=== PATIENT | female | born 1955 | race African-American/Black ===

== ENCOUNTER 2020-11-12 11:52 | Inpatient (IN) | payer BC, SELFPAY ==
[2020-11-12] VITALS (15 sets, daily range): BP systolic 120–140; BP diastolic 44–78; PULSE 49–55; RESP 10–20; TEMP 36.3–36.7; O2SAT 94–100; BMI 37.1
--- NOTE | ~2020-11-12 | CT_ITS ---
EXAMINATION: CT abdomen pelvis wo con DATE: 11/12/2020 14:07 INDICATION: Elevated lipase TECHNIQUE: Computed tomography (CT) of the abdomen and pelvis was performed without intravenous contr ast. The dose-length product (DLP) was 1062.25 mGy-cm. Automated exposure control and iterative recon struction technique were employed. COMPARISON: None FINDINGS: There is an 8 mm nodule in the right middle lobe. An 8 mm nodule is also noted in the lingu la. There are nodules measuring up to 6 mm in the left lower lobe. There is mild atelectasis of the v isualized lung bases. Cardiomegaly is noted. The examination is limited by the absence of intravenous contrast. Hepatomegaly is noted. There is nodularity of the liver surface. There is a 2.1 cm fluid a ttenuation lesion of the spleen. There is mild distention of the gallbladder. Inflammatory change is seen near the tail of the pancreas which is otherwise difficult to evaluate. The adrenal glands are u nremarkable. There is a 3 mm nonobstructing stone of the right kidney upper pole. The left kidney is unremarkable. Perisplenic varices are noted. There is calcified atherosclerosis of the aorta and many of the other arteries. No pathologically enlarged abdominal or pelvic lymph nodes are identified. Th ere is no free intraperitoneal gas or evidence of bowel obstruction. The appendix is normal. Colonic diverticulosis is present without evidence of diverticulitis. There is moderate spondylosis at L5-S1. Calcified uterine fibroids are noted. IMPRESSION: 1. Inflammatory change near the tail of the pancreas, likely reflecting acute pancreatitis given rusty ent's elevated lipase. 2. Hepatomegaly and cirrhosis. 3. Indeterminate nodules of the visualized lung bases measuring up to 8 mm. Follow-up CT of the chest in 3-6 months is recommended. Reviewed, dictated and finalized at location A. IMPRESSION: 1. Inflammatory change near the tail of the pancreas, likely reflecting acute p ancreatitis given patient's elevated lipase. 2. Hepatomegaly and cirrhosis. 3. Indeterminate nodules of the visualized lung bases measuring up to 8 mm. Fol low-up CT of the chest in 3-6 months is recommended.
--- NOTE | ~2020-11-12 | CT_ITS ---
EXAMINATION: CT brain wo con EXAM DATE: 11/13/2020 02:02 INDICATION: Confusion. TECHNIQUE: Spiral CT of the head was performed without contrast. Axial, coronal and sagittal images were reviewed. The dose-length product (DLP) for this examination was 605.33 mGy-cm. The exposure w as tailored according to patient size, and iterative reconstruction (ASIR) was used as additional dos e reduction technique. There is no prior study for comparison. FINDINGS: There is no acute intraparenchymal hemorrhage. No evidence of intraparenchymal brain mass lesion. No evidence of acute infarction. Please note that initial head CT has limited sensitivity f or small or acute infarctions. There is mild periventricular and subcortical hypodensity, nonspecific but probably related to small vessel ischemic disease. There is mild prominence of the sulci and v entricles related to cerebral atrophy. There is intracranial carotid arteriosclerosis. There are n o extra-axial collections. There is no mass effect or midline shift. The orbits are unremarkable. Soft tissue is unremarkable. The visualized sinuses and mastoid air cells are well aerated. IMPRESSION: 1. No acute intracranial findings. 2. Chronic age related findings. Reviewed, dictated and finalized at location B.
--- NOTE | ~2020-11-12 | US_ITS ---
EXAMINATION: US venous doppler [facility] DATE: 11/13/2020 09:57 INDICATION: Lower limb swelling TECHNIQUE: Grayscale ultrasound images without and with compression and Doppler ultrasound images of the bilateral lower extremity veins were obtained. COMPARISON: None. FINDINGS: The visualized portions of right common femoral vein, profunda (deep) femoral vein, femoral vein, pop liteal vein, posterior tibial veins, peroneal veins, gastrocnemius vein and greater saphenous vein ou tflow are patent. The visualized portions of left common femoral vein, profunda femoral vein, femoral vein, popliteal v ein, posterior tibial veins, peroneal veins, gastrocnemius vein and greater saphenous vein outflow ar e patent. IMPRESSION: 1. No deep venous thrombosis in either lower limb. Reviewed, dictated and finalized at location A.
--- NOTE | 2020-11-12 11:59 | ED.RECABL ---
HPI - Recheck/Abnormal Lab/Rx General Chief Complaint: Recheck/Abnormal Lab/Rx Stated Complaint: abnormal labs- cancer patient Time Seen by Provider: 11/12/20 11:59 History of Present Illness HPI narrative: 64 yo female w/ h/o metastatic liver cancer, cirrhosis, DM, HTN presents to the ED for abnormal labs. She reportedly had routine labs done by home health yesterday. Today Her sister received a call saying that her potassium and creatinine were high and she needs to come to the ED. He sister reports that she has not been eating or drinking anything at home. The patient is reportedly on palliative care, but her sister would like her admitted to the hospital if her condition can be improved. Related Data Home Medications Medication Instructions Recorded Confirmed amlodipine [Norvasc] 10 mg PO DAILY 11/12/20 citalopram [Celexa] 20 mg PO DAILY 11/12/20 famotidine [Pepcid] 40 mg PO DAILY 11/12/20 hydrochlorothiazide 25 mg PO DAILY 11/12/20 lactulose 30 ml PO BID 11/12/20 metformin 500 mg PO DAILY 11/12/20 metoprolol succinate 25 mg PO DAILY 11/12/20 tramadol 50 mg PO Q6-8H PRN 11/12/20 Allergies Allergy/AdvReac Type Severity Reaction Status Date / Time No Known Allergies Allergy Verified 11/12/20 12:06 Review of Systems Review of Systems: All systems reviewed & are unremarkable except as noted in HPI and below Constitutional: Constitutional: Denies fever(s) Cardiovascular: Cardiovascular: Denies chest pain Respiratory: Respiratory: Denies dyspnea Gastrointestinal: Gastrointestinal: Denies abdominal pain and Denies nausea Genitourinary: Genitourinary: Reports no additional female genitourinary complaints Musculoskeletal: Musculoskeletal: Reports back pain Neurologic: Denies dizziness COUNTS INCLUDE 234 BEDS AT THE [facility] Past Medical History Medical History Cirrhosis Diabetes mellitus HTN (hypertension) Liver cancer Social History Social History Living arrangements: with family Exam Const: General: no acute distress, alert, ill appearing and lethargic Orientation/consciousness: patient oriented x3 HENMT: Head: normal to inspection Neck: Neck: normal visual inspection Resp: Effort & Inspection: normal respiratory effort Auscultation: clear to auscultation bilaterally Cardio: Rate: bradycardic Rhythm: regular rhythm GI: Inspection: distended GI Palp: No Tenderness to palpation present (GI) and Yes Palpable mass present (RUQ) Skin: General skin exam: jaundice Neuro: General: patient oriented x3, moves all extremities, no focal motor deficits and CN's II-XI intact bilaterally Course Vital Signs Vital signs: Vital Signs Temperature 36.7 C 11/12/20 11:58 Pulse Rate 53 L 11/12/20 11:58 Respiratory Rate 16 11/12/20 11:58 Blood Pressure 140/60 11/12/20 11:58 Pulse Oximetry 100 11/12/20 11:58 Temperature 36.7 C 11/12/20 11:58 Pulse Rate 55 L 11/12/20 15:14 Respiratory Rate 18 11/12/20 15:14 Blood Pressure 132/78 11/12/20 15:14 Pulse Oximetry 99 11/12/20 15:14 MDM - Recheck/Abnormal Lab/Rx MDM Narrative Medical decision making narrative: Labs show elevated creatinine, elevated lipase, and moderate hypokalemia. CT shows findings concerning for acute pancreatitis. Per the MICA SIZER for her oncologist she has significant change from previous labs. They are agreeable to her being admitted here. Medical Records Attestation: I reviewed the patient's medical records. Lab Data Attestation: I reviewed the patient's lab results. Result diagrams: 11/12/20 12:13 11/12/20 12:50 Labs: Lab Results 11/12/20 11/12/20 11/12/20 Range/Units 12:13 12:50 13:12 WBC 11.7 H (4.5-10.0) K/mm3 RBC 4.69 (4.2-5.4) M/mm3 Hgb 10.6 L (12.0-15.0) g/dL Hct 34.0 L (37.0-47.0) % MCV 72.5 L (80-100) fl MCH 22.6 L (26-34) pg MCHC 31.2 L
[2020-11-12] MEDS: SODIUM CHLORIDE 0.9% IV 1,000 ML 999 ML IV CONT (12:23)
[2020-11-12 12:26] LABS: Basophils Absolute Auto 0.1 K/mm3 (0.0-0.1); Basophils Percent Auto 0.9 % (0.2-1.2); Eosinophils Absolute Auto 0.2 K/mm3 (0-0.3); Eosinophils Percent Auto 1.5 % (0-4.4); Hemoglobin 10.6 g/dL (12.0-15.0); Immature Granulocyte Absolute 0.11 K/mm3 (0.00-0.031); Immature Granulocyte Percent A 0.9 % (0-0.5); Immature Platelet Fraction Pct 10.4 % (0.9-11.2); Lymphocytes Absolute Auto 3.09 K/mm3 (0.9-3.2); Lymphocytes Percent Auto 26.5 % (18.3-44.2); Mean Corpuscular HGB Conc 31.2 g/dl (32-36); Mean Corpuscular Hemoglobin 22.6 pg (26-34); Mean Corpuscular Volume 72.5 fl (80-100); Monocytes Absolute Auto 1.2 K/mm3 (0.1-0.6); Monocytes Percent Auto 10.5 % (2.6-8.5); Neutrophils Absolute Auto 6.9 K/mm3 (1.3-6.7); Neutrophils Percent Auto 59.7 % (45.5-73.1); Nucleated Red Blood Cells Absolute Auto 0.8 K/mm3 (0.0-0.012); Nucleated Red Blood Cells Perc 7.1 % (0.0-0.2); Platelet Count Result 354 k/mm3 (150-375); Red Blood Count 4.69 M/mm3 (4.2-5.4); Red Cell Distribution Width 26.9 % (11.5-14.5); White Blood Count 11.7 K/mm3 (4.5-10.0)
[2020-11-12 12:34] LABS: Platelet Estimate Adequate (Adequate); Poikilocytosis 1+ (NORMAL); Target Cells 1+ (NORMAL)
[2020-11-12 13:23] LABS: Potassium 2.7 mmol/L (3.4-5.0)
[2020-11-12 13:24] LABS: Alanine Aminotransferase 87 U/L (4-35); Albumin Level 3.2 g/dL (3.5-5.1); Alkaline Phosphatase 120 U/L (38-126); Anion Gap 15 mmol/L (8-16); Bilirubin,Total 8.9 mg/dL (0.2-1.3); Blood Urea Nitrogen 13 mg/dL (7-17); Calcium 9.1 mg/dL (8.4-10.2); Carbon Dioxide 17 mmol/L (22-30); Chloride 109 mmol/L (98-107); Estimated CRCL calculation 32 ml/min; Estimated Glomerular Filt Rate 27; Glucose 91 mg/dL (65-105); Lipase 1981 U/L (23-300); Sodium 141 mmol/L (137-145)
[2020-11-12 13:34] LABS: Aspartate Amino Transferase 1221 U/L (14-36)
[2020-11-12 13:35] LABS: Add Urine Microscopic? YES; Appearance Urine Cloudy (Clear); Bilirubin Urine Negative (Negative); Blood Urine 1+ (Negative); Color Urine Amber (Yellow); Glucose Urine UA Negative (Negative); Ketones Urine Negative (Negative); Leukocyte Esterase Ur Negative LEU/UL (Negative); Mucus Urine Rare /lpf; Nitrate Urine Negative (Negative); Protein Urine 2+ mg/dL (Negative); RBC Urine 0-2 /hpf (0-2); Specific Grav Ur 1.015 (1.001-1.035); Urobilinogen Urine Negative mg/dL (<2.0)
--- NOTE | 2020-11-12 13:53 | ECG_ITS ---
Measurements Intervals Peck Rate: 51 P: 12 AR: 179 QRS: -16 QRSD: 101 T: 0 QT: 207 QTc: 192 Interpretive Statements SINUS BRADYCARDIA DELAYED PRECORDIAL R/S TRANSITION T WAVE ABNORMALITY IN ANTERIOR LEADS- CONSIDER ISCHEMIA BASELINE ARTIFACT- I, II, AVR, V4 ABNORMAL ECG Electronically Signed On 11-12-2020 14:04:22 CDT by Nikko Suarez D.O.
--- NOTE | 2020-11-12 17:03 | ADMGEN ---
This patient, Sandy Saldana, was admitted to 2 Medical Room 260-. Patient/family oriented to hospital policies and general routines including ID bracelet, bed and alarms, visiting hours, pain management, procedures, bathroom and other care routines, personal items, smoking policy, room service/diet, and visiting hours. Information on how to activate the Rapid Response Team has been discussed. Patient/Family are encouraged to report perceived risks to care and to ask questions if they do not understand what they are told or what they should do.
--- NOTE | 2020-11-12 19:00 | PM.IMHP ---
H&P: HPI History of Present Illness Date/Time: 11/12/20 19:00 Chief Complaint: Abnormal labs. Narrative: This is a pleasant 64-year-old female currently being treated for metastatic liver cancer, cirrhosis, hepatitis C, GERD, paroxysmal atrial fibrillation, hypertension, diabetes, and anemia who presented to the emergency department earlier today for evaluation of abnormal labs. She is a bit confused at the time of my evaluation and although she has a fair historian some of the following is also obtained via a review of her electronic medical records as well as discussions with her sister with whom the patient lives. She was diagnosed with liver cancer in September 2020 and it sounds as though she had radioembolization done at [place] which the sister tells me was not successful and she now has evidence of metastatic disease into the lung. It is my understanding that she is currently being treated with immunotherapy. In any event, [facility] was visiting yesterday and she had labs drawn at that time. Today she received a call that her potassium and creatinine were elevated and that she needed to come to the emergency department. She looks quite dehydrated at the time my evaluation and admits that she has not been eating or drinking well for quite some time. In fact she has gotten so weak that she is now staying with her sister and is now walking with the aid of a walker. She had a fall about 3 weeks ago and tells me that over the last couple of days she has been feeling lightheaded when standing and walking. Additionally she has had quite a bit of nausea and reports emesis x2 today as well as dark, loose stools. She denies headache, fever, chills, sweats, cold/flu symptoms, chest pain, pleuritic pain, cough, shortness of breath, hematemesis, and hematochezia. Review of Systems Review of Systems: Narrative: Twelve systems were reviewed with pertinent positives and negatives as per HPI. She has been sleeping quite a bit over the last week. She does suffer from GERD but is not been any worse than usual. Complains of generalized abdominal pain, more so in the last week or so. She has also noticed yellowing of the eyes which was not present weeks ago. No rash or pruritus. She has noticed a decrease in urine output. No dysuria or hematuria. She is not monitoring her blood pressure glucose very often. Except as documented, all other systems were reviewed and are negative. [facility] Past Medical History Medical History (Updated 11/12/20 @ 22:30 by Mirian Kim PA-C) Anemia History of blood transfusion. Cirrhosis Gastroesophageal reflux disease Hepatitis C Hypertension Metastatic cancer to liver (~09/2020) Status post radioembolization. Now on immunotherapy, being treated at [facility]. Type 2 diabetes mellitus Surgical History Surgical History (Updated 11/12/20 @ 22:22 by Mirian Kim PA-C) No history of previous surgery Family History Family History (Updated 11/12/20 @ 22:22 by Mirian Kim PA-C) Other Cancer Social History Social History (Updated 11/12/20 @ 22:23 by Mirian Kim PA-C) Social History: Surrogate decision maker: Jimmy Jacques, sister. Code status: Full code. She would not want to be on long-term life support. Smoking packs per day: 0.5 Smoking cigarettes per day: 10.0 Years smoked: 40 Smoking pack-years: 20.00 Smoking status: Former smoker Alcohol intake: former Drinks per week: 25 Alcohol use details: Heavy drinker in the past. Has abstained since at least September 2020. Substance use: never Substance use type: does not use Living arrangements: with family Additional living arrangements comments: The patient lives in [place] but is now staying with her sister in [place]. No children. 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 Gender identity (if verbalized by the patient): Female Spiritual care concerns: No Meds Home Medicat
[2020-11-12 20:12] LABS: Alveolar/Arterial O2 Gradient 48.7 mmHg; Base Excess ABG -8.3 mEq/l (+/-2.0); Carboxyhemoglobin 0.6 % THb (0-2.0); Fractional Inspired Oxygen 21 %; HCO3 ABG 17.2 mEq/l (22.0-26.0); Methemoglobin ABG 0.4 %THb (0-1.5); Oxygen Content ABG 13.7 %vol (16.0-22.0); Oxygen Saturation ABG 88.3 % (95.0-100.0); Oxyhemoglobin 87.6 % THb (90.0-100.0); PCO2 ABG 35.3 mmHg (35.0-45.0); PO2 ABG 58.8 mmHg (80.0-100.0); Reduced Hemoglobin 11.4 %THb (0-5.0); Total Hemoglobin 11.1 g/dL (12.0-18.0); pH ABG 7.306 (7.350-7.450)
[2020-11-12 20:13] LABS: Device ROOM AIR; Modified Allen's Test Pass; Site Drawn RIGHT BRACHIAL
[2020-11-12] MEDS: LACTATED RINGERS 1,000 ML 125 ML IV CONT (20:57)
[2020-11-12 21:08] LABS: Creatine Kinase 43 U/L (30-135)
[2020-11-12 21:09] LABS: Ammonia 33 umol/L (9-30)
[2020-11-12 21:16] LABS: Hemoglobin A1C 4.9 % (<5.7)
[2020-11-12 23:00] LABS: INR 2.7; Prothrombin Time 28.8 Seconds (11.1-14.7)
[2020-11-12 23:01] LABS: Partial Thromboplastin Time 60.6 SECONDS (22.3-36.8)
[2020-11-12 23:15] LABS: Creatine Kinase 38 U/L (30-135); Lactate Dehydrogenase 1350 U/L (313-618); Magnesium 2.2 mg/dL (1.6-2.3)
[2020-11-12] MEDS: FAMOTIDINE 20 MG/2 ML VIAL IV PUSH (23:31)
[2020-11-13 01:09] LABS: Folic Acid 4.6 ng/mL (2.76->20); Vitamin B12 > 1000.0 pg/mL (239-931)
[2020-11-13 02:01] LABS: Immature Reticulocyte Fraction 39.5 % (3.0-15.9); Reticulocyte Hemoglobin Conten 23.7 pg (28.2-35.7); Reticulocyte Percent 3.23 % (0.7-4.3); Reticulocytes Absolute 0.14 B/L (32.2-175.7)
[2020-11-13 02:10] LABS: Anion Gap 11 mmol/L (8-16); Blood Urea Nitrogen 14 mg/dL (7-17); Calcium 8.9 mg/dL (8.4-10.2); Carbon Dioxide 18 mmol/L (22-30); Chloride 109 mmol/L (98-107); Estimated CRCL calculation 35 ml/min; Estimated Glomerular Filt Rate 30; Glucose 97 mg/dL (65-105); Potassium 3.1 mmol/L (3.4-5.0); Sodium 138 mmol/L (137-145)
[2020-11-13 03:59] LABS: Iron 17 ug/dL (37-170); Percent Iron Saturation 5 % (20-50)
[2020-11-13 05:21] LABS: Hematocrit 32.5 % (37.0-47.0); Hemoglobin 10.1 g/dL (12.0-15.0); Immature Platelet Fraction Pct 9.8 % (0.9-11.2); Mean Corpuscular HGB Conc 31.1 g/dl (32-36); Mean Corpuscular Hemoglobin 22.3 pg (26-34); Mean Corpuscular Volume 71.9 fl (80-100); Mean Platelet Volume 10.6 fl (7.4-10.4); Platelet Count Result 359 k/mm3 (150-375); Red Blood Count 4.52 M/mm3 (4.2-5.4); White Blood Count 11.7 K/mm3 (4.5-10.0)
[2020-11-13 05:27] LABS: Ammonia 29 umol/L (9-30)
[2020-11-13 05:35] VITALS: BP 137/51; PULSE 55; RESP 20; TEMP 36.2; O2SAT 90
[2020-11-13 05:44] LABS: Alanine Aminotransferase 90 U/L (4-35); Albumin Level 3.1 g/dL (3.5-5.1); Alkaline Phosphatase 121 U/L (38-126); Anion Gap 13 mmol/L (8-16); Bilirubin,Total 8.9 mg/dL (0.2-1.3); Blood Urea Nitrogen 13 mg/dL (7-17); Calcium 8.7 mg/dL (8.4-10.2); Carbon Dioxide 17 mmol/L (22-30); Chloride 110 mmol/L (98-107); Estimated CRCL calculation 43 ml/min; Estimated Glomerular Filt Rate 32; Glucose 80 mg/dL (65-105); Magnesium 2.1 mg/dL (1.6-2.3); Potassium 2.9 mmol/L (3.4-5.0); Sodium 140 mmol/L (137-145)
[2020-11-13 06:19] LABS: Glucose Point of Care 71 (65-105)
[2020-11-13] MEDS: LACTATED RINGERS 1,000 ML 125 ML IV CONT ×2 (06:40→15:55)
[2020-11-13 06:48] LABS: Aspartate Amino Transferase 1229 U/L (14-36); Lipase 2340 U/L (23-300)
[2020-11-13] MEDS: FAMOTIDINE 20 MG/2 ML VIAL IV PUSH (09:08)
--- NOTE | 2020-11-13 10:28 | PM.IMPN ---
Progress Note: A&P Assessment and Plan (1) Encephalopathy: Code(s): G93.40 - Encephalopathy, unspecified Status: Acute Assessment and Plan: alert to self She is confused, likely due to toxic metabolic encephalopathy given dehydration, electrolyte abnormalities, and elevated ammonia level. ammonia level improved K improving head CT clear Her ammonia improved from 33 yesterday to 29 today. keeping Hydrochlorothiazide on hold given the dehydration and hypokalemia. acute pancreatitis persists with lipase worse 2340 LFTs still elevated due to underlying cancer, cirrhosis, and hepatitis-C. Due to the patient's progressing cancer and worsening encephalopathy, Sandy's sister and POA has chose to start Hospice care now. Family/sister/POA chosen Hospice and not further life-saving interventions at this time. Comfort measures only. (2) Acute kidney injury: Code(s): N17.9 - Acute kidney failure, unspecified Status: Acute Assessment and Plan: Creatinine 1.9 confused, may be due to significant dehydration due to mental status LFTs are likely elevated due to underlying cancer, cirrhosis, and hepatitis-C. Holding nephrotoxic medications at this time. Metformin on hold given acute kidney injury. Check hemoglobin A1c. Initiate sliding scale insulin, Accu-Cheks, hypoglycemic protocol. Family/sister/POA chosen Hospice and not further life-saving interventions at this time. Comfort measures only. (3) Dehydration: Code(s): E86.0 - Dehydration Status: Acute Assessment and Plan: Creatinine 1.9 confusion lead to dehydration or vice versa. due to confusion, she is NPO as she is at high risk for aspiration IVFs continued Holding nephrotoxic medications at this time. Metformin on hold given acute kidney injury. Family/sister/POA chosen Hospice and not further life-saving interventions at this time. Comfort measures only. (4) Acute pancreatitis: Code(s): K85.90 - Acute pancreatitis without necrosis or infection, unspecified Status: Acute Assessment and Plan: acute pancreatitis persists with lipase worse 2340 continued IVFs Family/sister/POA chosen Hospice and not further life-saving interventions at this time. Comfort measures only. (5) Acute hypokalemia: Code(s): E87.6 - Hypokalemia Status: Acute Assessment and Plan: receiving her potassium IV potassium supplement. ordered a noon BMP to recheck her potassium level. Family/sister/POA chosen Hospice and not further life-saving interventions at this time. Comfort measures only. (6) Transaminitis: Code(s): R74.01 - Elevation of levels of liver transaminase levels Status: Acute Assessment and Plan: Family/sister/POA chosen Hospice and not further life-saving interventions at this time. Comfort measures only. (7) Metastatic cancer to liver: Onset Date: ~09/2020 Code(s): C78.7 - Secondary malignant neoplasm of liver and intrahepatic bile duct Status: Acute Assessment and Plan: Family/sister/POA chosen Hospice and not further life-saving interventions at this time. Comfort measures only. (8) Hypertension: Code(s): I10 - Essential (primary) hypertension Status: Acute Assessment and Plan: BP controlled at this time BP 137/51 Family/sister/POA chosen Hospice and not further life-saving interventions at this time. Comfort measures only. (9) Gastroesophageal reflux disease: Code(s): K21.9 - Gastro-esophageal reflux disease without esophagitis Status: Acute Assessment and Plan: IV pepcid ordered no complaints at this time Family/sister/POA chosen Hospice and not further life-saving interventions at this time. Comfort measures only. (10) Type 2 diabetes mellitus: Code(s): E11.9 - Type 2 diabetes mellitus without complications Status: Acute Assessment and Plan: Hypoglycemia orde
[2020-11-13 11:59] VITALS: O2SAT 94
[2020-11-13 13:01] LABS: Anion Gap 11 mmol/L (8-16); Blood Urea Nitrogen 13 mg/dL (7-17); Calcium 8.9 mg/dL (8.4-10.2); Carbon Dioxide 18 mmol/L (22-30); Chloride 110 mmol/L (98-107); Estimated CRCL calculation 48 ml/min; Estimated Glomerular Filt Rate 37; Glucose 97 mg/dL (65-105); Potassium 3.1 mmol/L (3.4-5.0); Sodium 139 mmol/L (137-145)
[2020-11-13 14:00] VITALS: BP 134/46; PULSE 59; RESP 22; TEMP 36.7; O2SAT 97
[2020-11-13] MEDS: LORazepam (*CRX) 0.5 MG TABLET PO ×2 (15:54→21:02)
[2020-11-13] MEDS: LACTULOSE 20 GM/30 ML UDC PO (16:01)
[2020-11-13 20:00] VITALS: PULSE 63; RESP 20; O2SAT 98
[2020-11-13 20:22] VITALS: BP 149/68; PULSE 63; RESP 20; TEMP 36.4; O2SAT 98
[2020-11-14] MEDS: FAMOTIDINE 20 MG/2 ML VIAL IV PUSH (02:05)
[2020-11-14] MEDS: traMADol HCL (*CRX) 50 MG TABLET PO (02:12)
[2020-11-14] MEDS: LORazepam (*CRX) 0.5 MG TABLET PO (05:25)
[2020-11-14] MEDS: LACTULOSE 20 GM/30 ML UDC PO (08:03)
--- NOTE | 2020-11-14 09:10 | PM.DS ---
DS: Admitting Diagnosis Admitting Diagnosis Admitting Diagnosis: Encephalopathy DS: Discharge Diagnosis Discharge Diagnosis (1) Encounter for hospice care: Code(s): Z51.5 - Encounter for palliative care Status: Acute Assessment and Plan: Given patients underlying progressive metastatic liver cancer, patient's family has opted to proceed with hospice care. Care was arranged with [facility] and will be arranged at home with patient's sister. (2) Encephalopathy: Code(s): G93.40 - Encephalopathy, unspecified Status: Acute Assessment and Plan: Likely multifactorial to include metabolic encephalopathy given dehydration and electrolyte abnormalities as well as hepatic encephalopathy in the setting of cirrhosis and elevated ammonia levels. Head CT negative. Ammonia levels improved. She was rehydrated with IV fluids. She was alert to self only. (3) Metastatic cancer to liver: Onset Date: ~09/2020 Code(s): C78.7 - Secondary malignant neoplasm of liver and intrahepatic bile duct Status: Acute Assessment and Plan: Family/sister/POA chosen Hospice and not further life-saving interventions at this time. Comfort measures only. (4) Acute kidney injury: Code(s): N17.9 - Acute kidney failure, unspecified Status: Acute Assessment and Plan: Likely prerenal in etiology. Creatinine was elevated at 2.2 upon presentation and improved to 1.7 at time of discharge. No further intervention given initiation of hospice care (5) Dehydration: Code(s): E86.0 - Dehydration Status: Acute Assessment and Plan: Secondary to poor p.o. intake. Plan as above. Creatinine 1.9 (6) Acute pancreatitis: Code(s): K85.90 - Acute pancreatitis without necrosis or infection, unspecified Status: Acute Assessment and Plan: Lipase elevated at presentation with increase up to 2340. She was made NPO and rehydrated with IV fluids. Given initiation of hospice care, no further intervention. Diet as tolerated with hospice care. (7) Acute hypokalemia: Code(s): E87.6 - Hypokalemia Status: Acute Assessment and Plan: Potassium was monitored and supplemented. Will not continue with potassium supplementation or follow-up labs at discharge given family request for no further interventions at this time with comfort care only. (8) Transaminitis: Code(s): R74.01 - Elevation of levels of liver transaminase levels Status: Acute Assessment and Plan: LFTs markedly elevated at presentation, likely secondary to cirrhosis and liver cancer. (9) Hypertension: Code(s): I10 - Essential (primary) hypertension Status: Acute Assessment and Plan: Blood pressure reviewed and was relatively well controlled. Blood pressure medications continued upon discharge with further medication adjustment per [facility]. (10) Type 2 diabetes mellitus: Code(s): E11.9 - Type 2 diabetes mellitus without complications Status: Acute Assessment and Plan: A1c is 4.9. No further intervention. (11) Microcytic anemia: Code(s): D50.9 - Iron deficiency anemia, unspecified Status: Acute Assessment and Plan: H&H remained stable. Vital signs were stable and there was no evidence of bleeding. DS: Summary Hospital Course Reason for hospitalization: Encephalopathy Hospital Course: Date of admission: 11/12/2020 Date of discharge: 11/14/2020 Sandy Saldana is a 64-year-old female with history of metastatic liver cancer, cirrhosis, hepatitis-C, hypertension, type 2 diabetes mellitus, and anemia who presented to the emergency department on 11/14/2020 with complaints of abnormal labs. Patient's sister received a phone call to come to the ER due to high potassium and creatinine. Upon presentation to the emergency department, her vital signs were stable, mild leukocytosis, mild
[2020-11-14] MEDS: POTASSIUM CHLORIDE 20 MEQ TABLET 40 MEQ PO (11:58)
[2020-11-15 20:59] LABS: Haptoglobin <8 mg/dL (43-212)
== END 2020-11-14 12:00 | disposition hospice, home (50) | DRG 439 ==
LOC: ANHED 15:54 → ANH2MED 16:15
PROVIDERS: Nurse Practitioner; Physician Assistant; Admitting Provider Hospitalist; Emergency Provider Emergency Medicine; Visit Provider Physician Assistant
DX: K85.90 Acute pancreatitis without necrosis or infection, unspecified (principal); N17.9 Acute kidney failure, unspecified; G93.40 Encephalopathy, unspecified; C78.7 Secondary malignant neoplasm of liver and intrahepatic bile duct; E87.6 Hypokalemia; K74.60 Unspecified cirrhosis of liver; E11.9 Type 2 diabetes mellitus without complications; I10 Essential (primary) hypertension; K21.9 Gastro-esophageal reflux disease without esophagitis; B19.20 Unspecified viral hepatitis C without hepatic coma; E86.0 Dehydration; R74.01 Elevation of levels of liver transaminase levels; D50.9 Iron deficiency anemia, unspecified; C80.1 Malignant (primary) neoplasm, unspecified; Z51.5 Encounter for palliative care; Z79.84 Long term (current) use of oral hypoglycemic drugs; Z79.899 Other long term (current) drug therapy; Z87.891 Personal history of nicotine dependence
CPT/HCPCS: 36415; 36600; 70450; 74176; 80048; 80053; 81001; 82140; 82375; 82550; 82607; 82728; 82746; 82805; 82948; 83010; 83036; 83050; 83540; 83550; 83615; 83690; 83735; 84443; 85025; 85027; 85046; 85055; 85610; 85730; 87086; 87088; 93005; 93970; 96361; 96374; 99285; A9270; J3480; J7030; J7120